=== PATIENT | female | born 1960 | race Caucasian/White ===

== ENCOUNTER 2017-04-05 23:21 | Emergency (ER) | payer OTHER ==
[~2017-04-05] VITALS: Ht 162.6 cm; Wt 65.0 kg
[~2017-04-05 23:21] MED LIST: ALBU17I INH; GUAI100S6 PO; LEVA500T33 PO; PRED10 PO; PRED20 PO
[2017-04-05] MEDS ORDERED: ALBU6.7H INH (23:48)
--- NOTE | 2017-04-06 00:09 | PD ---
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 The patient was drawing blood from a source patient for a medical evaluation when the patient jerked causing the needle to come out and spoke her in the left elbow. She states that she felt only a minor stick. She noticed small amount of blood coming from her elbow. She does not believe that this was a deep injury. She cleansed the wound immediately with bleach and soap and water. She has not had a tetanus shot over 5 years. She is up-to-date with her hepatitis of his issues. She denies other medical complaints. [facility] Past Medical History Arthritis: Yes Asthma: Yes Autoimmune Disease: No Anxiety: Yes Depression: No Cancer: No High Cholesterol: Yes Chemotherapy: No Chest Pain: No Congestive Heart Failure: No COPD: No Diabetes: No Hiatal Hernia: No Kidney Stones: No Immunizations Current: Yes Radiation Therapy: No Renal Failure: No Sickle Cell Disease: No Sleep Apnea: No Thyroid Disease: No Ulcer: No Tetanus Vaccination: > 5 Years Influenza Vaccination: Yes Past Surgical History Abdominal Surgery: No Arteriovenous Shunt: No Cardiac Surgery: No Section: Yes Ear Surgery: No Endocrine Surgery: No Eye Surgery: No Gynecologic Surgery: Yes (C- SECTION) Oral Surgery: No Thoracic Surgery: No Tonsillectomy: Yes Other Surgery: Yes (TONSILLECTOMY, BBA) Social History Alcohol Use: Yes (socially) Tobacco Use: No (2002) Substance Use: No Allergies-Medications (Allergen,Severity, Reaction): Coded Allergies: Morphine (Verified Allergy, Intermediate, N/V, 04/05/17) Uncoded Allergies: snails (Allergy, Severe, 04/08/11) Reported Meds & Prescriptions Reported Meds & Active Scripts Active Reported Proventil Hfa 6.7 GM Inh (Albuterol Sulfate) 90 Mcg/Act Aer 2 Puff INH Q4-6H PRN Review of Systems Except as stated in HPI: all other systems reviewed are Neg Physical Exam Narrative GENERAL: This is a well-nourished, well-developed patient, in no apparent distress. SKIN: No rashes, ecchymoses or lesions. Warm and dry. Superficial needlestick puncture to the left proximal forearm HEAD: Atraumatic. Normocephalic. EYES: PERRL, EOMI, no discharge or injection. No scleral icterus. EARS: Clear NOSE: Nasal turbinates appear normal. THROAT: Mucosa pink and moist. Airway patent. NECK: Trachea midline. supple, moves head freely. LUNGS: Clear to auscultation. CV: Regular in rhythm. ABDOMEN: Soft nontender. EXT: No clubbing cyanosis or edema. MDM Medical Decision Making Medical Screen Exam Complete: Yes Emergency Medical Condition: Yes Medical Record Reviewed: Yes Differential Diagnosis Differential diagnoses: Needlestick blood exposure, abrasion, contusion, HIV exposure Narrative Course The source patient is known. We will perform a rapid HIV test. At this point postexposure prophylaxis is not indicated. Patient's tetanus status is updated. Needlestick protocol followed. This is needlestick blood exposure Diagnosis Primary Impression: needlestick blood exposure Additional Instructions: Rest. Daily wound care with soap and water and apply Neosporin. Follow-up with employee med. Call in the morning. Med/Other Pt SpecificInfo: Wound Care Condition: Stable Anirudh Palacios Apr 06, 2017 00:09
[2017-04-06] MEDS ORDERED: TETANUS/DIPHTHERIA TOXOID ADULT 0.5 ML VIAL IM ONE (00:15)
== END 2017-04-06 03:16 | disposition home or self-care (01) ==
LOC: NEPD 23:21
DX: S51.032A Puncture wound without foreign body of left elbow, initial encounter (principal); Z77.21 Contact with and (suspected) exposure to potentially hazardous body fluids; Z23 Encounter for immunization; W46.1XXA Contact with contaminated hypodermic needle, initial encounter; Y93.F9 Activity, other caregiving; Y92.238 Other place in hospital as the place of occurrence of the external cause; Y99.0 Civilian activity done for income or pay
CPT/HCPCS: 90471; 90714